=== PATIENT | male | born 1985 | race Caucasian/White ===

== ENCOUNTER → 2024-02-24 13:56 | Outpatient (BNVA) | payer MEDICAID, SELFPAY | PROVIDERS: PCP Nurse Practitioner Family; Visit Provider Nurse Practitioner Family | DX: Z72.53 High risk bisexual behavior (principal); M10.9 Gout, unspecified; A64 Unspecified sexually transmitted disease; K04.7 Periapical abscess without sinus; F19.11 Other psychoactive substance abuse, in remission | CPT/HCPCS: 80307; 87491; 87591 ==

== ENCOUNTER → 2024-09-30 18:38 | Outpatient (BNVA) | payer BC, MEDICAID, SELFPAY | PROVIDERS: PCP Nurse Practitioner Family; Visit Provider Emergency Medicine | DX: R30.0 Dysuria (principal) | CPT/HCPCS: 81000; 87086 ==

== ENCOUNTER → 2024-10-10 14:59 | Outpatient (BNVA) | payer BC, MEDICAID, SELFPAY | PROVIDERS: PCP Nurse Practitioner Family; Visit Provider Registered Nurse | DX: Z20.2 Contact with and (suspected) exposure to infections with a predominantly sexual mode of transmission (principal) | CPT/HCPCS: 87491; 87591; 87661 ==